=== PATIENT | male | born 1940 | race Caucasian/White ===

== ENCOUNTER 2023-02-04 10:56 | Observation (INO) | payer MEDICARE, SELFPAY ==
[2023-02-04] VITALS (37 sets, daily range): BP systolic 103–139; BP diastolic 53–79; PULSE 58–131; RESP 15–28; TEMP 36.6–37.1; O2SAT 92–99; BMI 29.1
--- NOTE | ~2023-02-04 | XR_ITS ---
EXAMINATION: XR chest 2V DATE: 02/04/2023 11:49 INDICATION: Weakness TECHNIQUE: frontal and lateral views of the chest were obtained. COMPARISON: None FINDINGS: Increased lucency and architectural distortion in the upper lung zones suggestive but not diagnostic of emphysema. Calcified nodule in the left midlung zone consistent with old granulomatous disease. Mi ld linear atelectasis at the lung bases on the lateral projection. No pulmonary edema, pleural effusi on or pneumothorax. Heart size is normal. Tortuous thoracic aorta. Moderate degenerative skeletal beth nges in the spine and at both shoulders. IMPRESSION: 1. Mild streaky bibasilar atelectasis with hyperlucency at the upper lung zone suggestive but not sonia gnostic of COPD. Reviewed, dictated and finalized at location A. IMPRESSION: 1. Mild streaky bibasilar atelectasis with hyperlucency at the upper lung zone suggestive but not diagnostic of COPD.
--- NOTE | ~2023-02-04 | US_ITS ---
EXAMINATION: US abdomen limited DATE: 02/04/2023 19:59 INDICATION: elevated LFTs, thrombocytopenia TECHNIQUE: Multiple grayscale and Doppler ultrasound images of limited portions of the abdomen were o btained. COMPARISON: None available. FINDINGS: Not visualized The liver is normal with normal echogenicity and echotexture. No surface nod ularity. Normal hepatopetal flow in the main portal vein. The gallbladder is normal with no abnormal wall thickening, pericholecystic fluid or stones. The common bile duct measures 5 mm. There was no so nographic Oates sign. Visualized portions of the inferior vena cava were normal. Right kidney measur es 11.1 cm, no hydronephrosis. IMPRESSION: Pancreas obscured by bowel gas, otherwise normal limited abdominal ultrasound findings. Reviewed, dictated and finalized at location K. IMPRESSION: Pancreas obscured by bowel gas, otherwise normal limited abdominal ultrasound f indings.
--- NOTE | ~2023-02-04 | MR_ITS ---
EXAMINATION: MR brain/brain stem wo con DATE: 02/05/2023 15:34 INDICATION: Gait instability TECHNIQUE: Magnetic resonance imaging (MRI) of the brain and brainstem was performed without intraven ous contrast. Sequences included sagittal and axial T1-weighted SE, axial diffusion-weighted FS SE, a xial T2*-weighted GRE, axial T2-weighted FLAIR, and axial T2-weighted FSE. Postcontrast axial and cor onal T1-weighted SE was obtained. Apparent diffusion coefficient (ADC) maps were created. COMPARISON: CT dated 12/05/2022 FINDINGS: There are no areas of restricted diffusion to suggest acute infarction. No intracranial hemorrhage or abnormal intracranial mass lesion. There are scattered areas of nonspecific increased T2-weighted si gnal intensity in the cerebral white matter, predominantly involving the deep and periventricular whi te matter. There are no intraparenchymal signal abnormalities seen on the other pulse sequences. The ventricles are symmetric and normal in size. There are no abnormal extra-axial fluid collections. Jovani w voids are seen in the cerebral arteries on the T2-weighted sequences consistent with their expected patency. Mild mucosal thickening the left maxillary sinus. Visualized orbits and soft tissues are un remarkable. IMPRESSION: 1. No acute intracranial process. 2. Scattered periventricular predominant white matter T2 hyperintensity which is within normal limits for age and likely sequela of chronic small vessel ischemic disease. Reviewed, dictated and finalized at location A. IMPRESSION: 1. No acute intracranial process. 2. Scattered periventricular predominant white matter T2 hyperintensity which i s within normal limits for age and likely sequela of chronic small vessel ische real disease.
--- NOTE | ~2023-02-04 | CT_ITS ---
EXAMINATION: CT brain wo con INDICATION: Dizziness and falls COMPARISON: None TECHNIQUE: Standard unenhanced head CT. The dose-length product (DLP) was 605.33 mGy-cm. The mA was a djusted according to patient size. Iterative reconstruction technique was employed. FINDINGS: There is no acute intraparenchymal hemorrhage. No evidence of mass lesion. No evidence of a cute infarction. There is mild periventricular and subcortical hypodensity probably related to small vessel ischemic disease. There is mild prominence of the sulci and ventricles related to cerebral atr ophy. Intracranial calcified cerebral atherosclerosis is noted. There are no extra-axial collections. There is no mass effect or midline shift. The orbits and soft tissues are unremarkable. The visualiz ed sinuses and mastoid air cells are well aerated. IMPRESSION: 1. No acute intracranial abnormality. 2. Age related findings. Reviewed, dictated and finalized at location L.
--- NOTE | ~2023-02-04 | MR_ITS ---
EXAMINATION: MR lumbar spine wo con DATE: 02/05/2023 15:34 INDICATION: Gait instability TECHNIQUE: Magnetic resonance imaging (MRI) of the lumbar spine was performed without intravenous con trast. Sequences included sagittal T2-weighted FSE, sagittal T2-weighted FS FSE, sagittal T1-weighted FSE, and axial T2-weighted FSE. 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 2 -3 mm retrolisthesis L1 on L2, L2 on L3, L3 on L4 and L4 on L5. Mild likely physiologic anterior wedg ing at T12 and L1 with <20% anterior vertebral body height loss. There is also mild right anterior ve rtebral body height loss at L4. Normal bone marrow signal. Moderate disc height loss at L2-L3 and mil d disc height loss at remaining levels from T11-T12 through L5-S1. The conus medullaris terminates at L1-L2. There is normal signal in the caudal spinal cord. Paravertebral soft tissues are unremarkable . The following disc levels are specifically discussed: T12-L1: Disc is bulging. There is mild bilateral facet joint osteoarthritis. There is mild bilateral neural foraminal stenosis. There is mild central canal stenosis. L1-L2: Disc is bulging with annular fissure. There is mild bilateral facet joint osteoarthritis. Ther e is mild to moderate bilateral neural foraminal stenosis. There is mild central canal stenosis. L2-L3: Disc is bulging with annular fissure and superimposed small right paracentral disc extrusion w ith disc material extending up to 5 mm caudal to the level of the superior endplate of L3. There is m ild bilateral facet joint osteoarthritis. There is moderate bilateral neural foraminal stenosis. Ther e is mild central canal stenosis. L3-L4: Disc is bulging with annular fissure. There is mild bilateral facet joint osteoarthritis. Ther e is moderate bilateral neural foraminal stenosis. There is mild central canal stenosis. L4-L5: Disc is bulging with annular fissure. There is mild to moderate bilateral facet joint osteoart hritis. There is moderate bilateral neural foraminal stenosis. There is mild central canal stenosis. L5-S1: Annular fissure and broad-based disc extrusion with disc material extending up to 5 mm cephala d to the level of the inferior endplate of L5. There is mild to moderate bilateral facet joint osteoa rthritis. There is severe bilateral neural foraminal stenosis. There is moderate central canal stenos is. IMPRESSION: 1. 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 Reviewed, dictated and finalized at location A. IMPRESSION: 1. Mild to moderate lumbar spondylosis most notable for L5 spondylolysis with 1 0 mm anterolisthesis on S1 which contributes to severe bilateral neural foramin al stenosis and moderate central canal stenosis at L5-S1.
--- NOTE | ~2023-02-04 | US_ITS ---
EXAMINATION: US carotid duplex BI DATE: 02/04/2023 19:53 INDICATION: Dysmetria. Loss of balance. TECHNIQUE: Grayscale, color Doppler, and pulsed Doppler images of the cervical carotid arteries were obtained. The degree of vessel stenosis is placed in one of the following categories: normal, <50%, 5 0-69%, >=70% but less than near-occlusion, near-occlusion, or total occlusion. Note that percent sten osis relative to normal distal artery lumen diameter is indirectly measured from velocity measurement s as described by Jovanni, et al. Radiology 2003; 229:340-346. COMPARISON: None. FINDINGS: RIGHT: The right common carotid artery (CCA) peak systolic velocity (PSV) is 99 cm/s. The right internal car otid artery (ICA) PSV is 76 cm/s. The right ICA end-diastolic velocity (EDV) is 33 cm/s. The right IC A/CCA PSV ratio is 0.8. Grayscale and color Doppler images yield an estimate of <50% diameter reducti on from plaque in the ICA. There is antegrade flow in the right vertebral artery. LEFT: The left CCA PSV is 87 cm/s. The left ICA PSV is 71 cm/s. The left ICA EDV is 26 cm/s. The left ICA/C CA PSV ratio is 0.8. Grayscale and color Doppler images yield an estimate of <50% diameter reduction from plaque in the ICA. There is antegrade flow in the left vertebral artery. IMPRESSION: 1. <50% stenosis in the right internal carotid artery. 2. <50% stenosis in the left internal carotid artery. Reviewed, dictated and finalized at location A.
--- NOTE | 2023-02-04 11:07 | ECG_ITS ---
Measurements Intervals [place] Rate: 80 P: 66 OH: 171 QRS: 44 QRSD: 95 T: 70 QT: 352 QTc: 407 Interpretive Statements SINUS RHYTHM WITH OCCASIONAL SUPRAVENTRICULAR PREMATURE COMPLEXES NONSPECIFIC ST & T-WAVE ABNORMALITY ABNORMAL ECG NO PREVIOUS ECG AVAILABLE FOR COMPARISON Electronically Signed On 02-04-2023 13:31:21 CDT by Travis Paris M.D.
[2023-02-04 11:31] LABS: Hematocrit 43.4 % (42.0-52.0); Hemoglobin 14.5 g/dL (14.0-18.0); Immature Platelet Fraction Pct 7.8 % (0.9-11.2); Mean Corpuscular HGB Conc 33.4 g/dl (32-36); Mean Corpuscular Volume 98.6 fl (80-100); Mean Platelet Volume 10.7 fl (7.4-10.4); Platelet Count Result 95 k/mm3 (150-375); Red Cell Distribution Width 12.8 % (11.5-14.5)
[2023-02-04 11:42] LABS: Alanine Aminotransferase 38 U/L (6-50); Albumin Level 4.1 g/dL (3.5-5.1); Alkaline Phosphatase 129 U/L (38-126); Anion Gap 11 mmol/L (8-16); Aspartate Amino Transferase 133 U/L (17-59); Bilirubin,Total 1.5 mg/dL (0.2-1.3); Blood Urea Nitrogen 20 mg/dL (9-20); Calcium 8.5 mg/dL (8.4-10.2); Carbon Dioxide 21 mmol/L (22-30); Chloride 96 mmol/L (98-107); Estimated CRCL calculation 42 ml/min; Estimated Glomerular Filt Rate 53; Glucose 99 mg/dL (65-110); Potassium 4.3 mmol/L (3.4-5.0); Sodium 128 mmol/L (137-145)
[2023-02-04 12:05] LABS: Band Neutrophils Percent 25 % (0-6); Lymphocytes Absolute Manual 0.55 K/mm3 (1.1-4.5); Metamyelocytes Percent 3 %; Monocytes Percent Manual 6 % (3-9); Neutrophils Percent Manual 55 % (46-73); Schistocytes None Seen (NORMAL); Total Cells Counted 100
--- NOTE | 2023-02-04 12:35 | ED.GENADULT ---
HPI - General Adult General Chief complaint: Weakness Stated complaint: WEAKNESS AND URINARY INCONTINENCE Time Seen by Provider: 02/04/23 11:57 History of Present Illness HPI narrative: 83-year-old male presented the ED for evaluation of increased generalized weakness, exertional shortness of breath, urinary incontinence and unstable gait that has been worsening over the course of the last week. Patient states he Does have shortness of breath but that this has acutely worsened over the course of the last week. Patient states he gets out of breath does while walking across the room. Patient states he also does have a history of unsteady gait that would worsen when he looked up but now he states that his unstable gait is worsened even with minor ambulation. Patient states with his unstable gait and dizziness he does not feel like he is going to pass out but has had increased falls. Patient denies any prior history of urinary retention or urinary tract infections. Patient denies any chest pain. Patient denies any associated nausea vomiting or diarrhea. Related Data Home Medications Medication Instructions Recorded Confirmed glucosamine 375 mg-chondroitin sul 1 cap PO DAILY 02/04/23 02/04/23 A 200 mg-herb no.182 100 mg capsule Allergies Allergy/AdvReac Type Severity Reaction Status Date / Time No Known Allergies Allergy Verified 02/04/23 12:57 Review of Systems Review of Systems: All systems reviewed & are unremarkable except as noted in HPI and below PMFSH Past Medical History Medical History (Updated 02/04/23 @ 21:05 by Marcos Montanez MD) Arthritis Surgical History Surgical History (Updated 02/04/23 @ 16:22 by Mahi Musa PA-C) History of bilateral total hip arthroplasty History of open reduction and internal fixation (ORIF) procedure Repair right hand fracture. Family History Family History Mother Diabetes mellitus Social History Social History (Updated 02/04/23 @ 16:23 by Mahi Musa PA-C) Social History: Surrogate medical decision maker: Gómez Corea (cousin) or Wilbur Shabazz (grandson). Code status: Full code. Smoking status: Former smoker Smokeless tobacco user: chewing tobacco Alcohol intake: current Drinks per week: 1 Alcohol use details: Rare alcohol use, perhaps 1 to 2 drinks a month. Substance use: never Other substance usage details: chewing tobacco Lack of Transportation: No Lack of Food: Never True Current Housing: I Have Housing Concerned About Future Housing: No Difficulty Paying Gas/Electric Bills: No Difficulty Paying for Meds: No Currently Unemployed: No Education: Trade/Vocational Certificate Difficulty w/ Childcare or Family Care: No Additional living arrangements comments: The patient [place] [address] [place] 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 Spiritual care concerns: No Exam Narrative: APPEARANCE: Well appearing, no pain, no distress, well-nourished. HEAD: normocephalic, atraumatic. EYES: PERRLA/EOMI, conjunctivae clear. NOSE: Normal no drainage EARS:TMS clear with good light reflex. THROAT: Pharynx clear, no exudate. NECK: Supple. No adenopathy, no masses. RESPIRATORY: Airway patent, respirations nonlabored. Clear to auscultation bilaterally, no rales, rhonchi, wheezing. CARDIOVASCULAR: Regular rate and rhythm without murmurs rubs or gallops. ABDOMINAL: Soft, nontender, nondistended, normal bowel sounds MUSCULOSKELETAL: Moves all extremities. Strength/ROM intact, No edema, No calf tenderness. NEURO: Alert. Cranial nerves II through XII intact. Coordination of the left leg that patient states is not new. SKIN: Warm, dry. Normal Color PSYCHIATRIC: Normal affect/mood. Course Course Emergency Course: 83-year-old male presented ED for evaluation of shortness of breath, unsteady gait and urinary incontinence. Head CT was negative. Jloly
[2023-02-04 12:51] LABS: Appearance Urine Clear (Clear); Bacteria Urine None Seen /hpf; Bilirubin Urine 1+ (Negative); Blood Urine Negative (Negative); Color Urine Dark Yellow (Yellow); Glucose Urine UA Negative (Negative); Ketones Urine Trace mg/dL (Negative); Leukocyte Esterase Ur Negative LEU/UL (Negative); Need Manual Microscopic Reviewed; Nitrate Urine Negative (Negative); Protein Urine 1+ mg/dL (Negative); RBC Urine 0-2 /hpf (0-2); Specific Grav Ur 1.019 (1.001-1.035); Squamous Epithelial Cell Urine Occasional /hpf (Few); WBC Urine 0-5 /hpf; pH Urine 5.5 (5.0-9.0)
[2023-02-04 12:58] LABS: Add Urine Microscopic? YES
[2023-02-04 13:40] LABS: Influenza A QL RT-PCR Negative (Negative); Influenza B QL RT-PCR Negative (Negative); RSV RNA, RT-PCR Negative (Negative); SARS-CoV-2 RNA PCR Negative (Negative)
[2023-02-04 13:49] LABS: NT Pro B Type Natriuretic Pept 241 pg/mL (19.9-100)
--- NOTE | 2023-02-04 15:55 | PM.IMHP ---
H&P: HPI History of Present Illness Date/Time: 02/04/23 15:45 Chief Complaint: Weakness, balance issues, urine incontinence. Narrative: This is a very pleasant 83-year-old gentleman with no reported medical history presented to the emergency department via private vehicle from home accompanied by his cousin and grandson for evaluation of weakness, balance issues, and urine incontinence. The patient provides the following history. He is quite healthy and is very active; always working on something at the house and fixing lawnmowers, etc.. The last year he started to have issues with his balance and he now ambulates with a cane or wheeled walker on occasion. He has had falls over the year with his last fall being on Wednesday. He cannot say for sure what caused the fall, perhaps he tripped over a rug, but he sustained no injuries with that and there was no head trauma or loss of consciousness. His appetite has been poor and he has not been eating much though he continues to try to stay hydrated (he typically drinks up to a gallon of water a day and he has done so for many years). Additionally he reports problems with urinary incontinence which is also not necessarily new. He has intermittent low back pain which is not necessarily unusual. He came in today due to the inability to accomplish his usual activities of daily living due to weakness. He denies vertigo, syncope, near syncope, focal weakness, paresthesias, headache, vision changes, facial droop, difficulty speaking and swallowing, trauma, memory loss, chest pain, nausea, vomiting, diarrhea, and dysuria. He was afebrile on arrival to the emergency department with stable blood pressures. CBC was significant for white blood cell count of 5.0, hemoglobin 14.5, platelet 95, and 25% bands were noted on manual differential (no schistocytes seen). CMP was significant for sodium of 128, chloride 96, carbon dioxide 21, BUN 20, creatinine 1.30, total bili 1.5, AST 133, ALT 38, alkaline phosphatase 129. Urine showed 1+ protein, trace ketones, and 1+ bilirubin. He tested negative for influenza, RSV, and SARS-CoV-[address] showed no acute intracranial abnormality and age-related findings. Chest x-ray did not show any acute findings. EKG showed sinus rhythm with occasional ectopy, rate of 80, normal axis, and nonspecific ST T wave changes. Review of Systems Review of Systems: Twelve systems were reviewed. Weight has remained stable. No recent cold or flu symptoms. Denies sensations of racing heart. He has mild shortness of breath with exertion but denies cough. No pleuritic pain. No orthopnea or paroxysmal nocturnal dyspnea. No lower extremity edema, calf pain, or history of venous thromboembolism. Denies dysphagia. No history of liver disease. Denies jaundice and pruritus. Denies hematuria and dysuria. No sensations of incomplete bladder evacuation. No fecal incontinence. No saddle anesthesias. Rare tingling sensations in the lower legs but that is rare. Occasional Charley horses in the legs. Except as documented, all other systems were reviewed and are negative. [facility] Past Medical History Medical History (Updated 02/04/23 @ 21:05 by Marcos Montanez MD) Arthritis Surgical History Surgical History (Updated 02/04/23 @ 16:22 by Mahi Musa PA-C) History of bilateral total hip arthroplasty History of open reduction and internal fixation (ORIF) procedure Repair right hand fracture. Family History Family History Mother Diabetes mellitus Social History Social History (Updated 02/04/23 @ 16:23 by Mahi Musa PA-C) Social History: Surrogate medical decision maker: Gómez Corea (cousin) or Wilbur Shabazz (grandson). Code status: Full code. Smoking status: Former smoker Smokeless tobacco user: chewing tobacco Alcohol intake: current Drinks per week: 1 Alcohol use details: Rare alcohol use, perhaps 1 to 2 drinks a month.
--- NOTE | 2023-02-04 16:17 | ADMGEN ---
This patient, Joni Shabazz, was admitted to Medical Room 243-01. Patient/family oriented to hospital policies and general routines including ID bracelet, bed and alarms, visiting hours, pain management, procedures, bathroom and other care routines, personal items, smoking policy, room service/diet, and visiting hours. Information on how to activate the Rapid Response Team has been discussed. Patient/Family are encouraged to report perceived risks to care and to ask questions if they do not understand what they are told or what they should do.
[2023-02-04 18:06] LABS: CRP 4.8 mg/dL (<1.0)
[2023-02-04 18:25] LABS: Erythrocyte Sedimentation Rate 10 mm/hr (0-20)
[2023-02-04 19:33] LABS: Folic Acid 13.6 ng/mL (2.76->20)
[2023-02-04 21:09] LABS: Glucose Point of Care 97 mg/dl (65-105)
[2023-02-04 21:50] LABS: Hepatitis B Surface Antigen Negative (Negative)
[2023-02-04 21:55] LABS: HAV RESULT Negative (Negative); Hepatitis B Core IgM Result Negative (Negative)
[2023-02-04 22:07] LABS: Hepatitis C Virus Antibody Negative (Negative)
[2023-02-04] MEDS: SODIUM CHLORIDE 0.9% IV 1,000 ML 100 ML IV CONT (23:12)
[2023-02-05] VITALS (10 sets, daily range): BP systolic 105–134; BP diastolic 61–82; PULSE 60–78; RESP 18; TEMP 36.4–36.9; O2SAT 96–100
[2023-02-05 05:06] LABS: Creatine Kinase 249 U/L (55-170); Magnesium 2.2 mg/dL (1.6-2.3)
[2023-02-05 05:10] LABS: Hematocrit 38.4 % (42.0-52.0); Hemoglobin 13.2 g/dL (14.0-18.0); Mean Corpuscular HGB Conc 34.4 g/dl (32-36); Mean Corpuscular Hemoglobin 33.6 pg (26-34); Mean Corpuscular Volume 97.7 fl (80-100); Mean Platelet Volume 11.3 fl (7.4-10.4); Platelet Count Result 76 k/mm3 (150-375); Red Blood Count 3.93 M/mm3 (4.6-6.20); Red Cell Distribution Width 12.5 % (11.5-14.5); White Blood Count 3.9 K/mm3 (4.5-10.0)
[2023-02-05 05:33] LABS: Creatinine Urine 103.1 mg/dL; Sodium Urine Random 34 meq/L
[2023-02-05 05:38] LABS: Band Neutrophils Percent 25 % (0-6); Lymphocytes Absolute Manual 0.54 K/mm3 (1.1-4.5); Monocytes Absolute Manual 0.35 K/mm3 (0.1-0.90); Monocytes Percent Manual 9 % (3-9); Neutrophils Percent Manual 52 % (46-73); Total Cells Counted 100
[2023-02-05 05:39] LABS: Platelet Estimate Decreased (Adequate); Schistocytes None Seen (NORMAL)
[2023-02-05 05:41] LABS: Burr Cells 1+ (NORMAL)
[2023-02-05 07:27] LABS: Alanine Aminotransferase 32 U/L (6-50); Albumin Level 2.9 g/dL (3.5-5.1); Alkaline Phosphatase 98 U/L (38-126); Anion Gap 6 mmol/L (8-16); Aspartate Amino Transferase 100 U/L (17-59); Bilirubin,Total 0.8 mg/dL (0.2-1.3); Blood Urea Nitrogen 20 mg/dL (9-20); Calcium 7.7 mg/dL (8.4-10.2); Carbon Dioxide 18 mmol/L (22-30); Chloride 101 mmol/L (98-107); Estimated CRCL calculation 54 ml/min; Estimated Glomerular Filt Rate > 60; Glucose 89 mg/dL (65-110); Potassium 3.6 mmol/L (3.4-5.0); Sodium 125 mmol/L (137-145)
[2023-02-05] MEDS: PERFLUTREN LIPID MICROSPHERES 1.5 ML VIAL DILUTED TO 10 ML TOTAL VOLUME IV PUSH (09:06)
--- NOTE | 2023-02-05 11:34 | IVDEFINITY ---
Prior to administration of IV Definity the patient was educated on the risks and benefits of the imaging enhancing agent including potential adverse side effects. The patient verbalized understanding. Allergies were verified. No exclusion criteria were identified and at least one of the following inclusion criteria were met: 1) physician request, 2) patient technically difficult to image (per the [place] [employer] guidelines of two or more segments not discernable within the apical view), or 3) questionable left ventricular function. ?
--- NOTE | 2023-02-05 11:34 | WPDNEURCNPN ---
Assessment and Plan Assessment and plan (1) Falls frequently: Code(s): R29.6 - Repeated falls Status: Acute (2) Generalized weakness: Code(s): R53.1 - Weakness Status: Acute (3) Urinary incontinence: Code(s): R32 - Unspecified urinary incontinence Status: Acute (4) Hyponatremia: Code(s): E87.1 - Hypo-osmolality and hyponatremia Status: Acute Plan Mr. Shabazz is an 83 year old fairly healthy man with a history of arthritis and spine disease with acute on chronic worsening of gait instability and urinary incontinence. Gait instability is likely due to a combination of spine disease (although details of the condition are not available), arthritis, and possibly neuropathy (some sensory changes noted on exam). Patient is cognitively intact and CT head did not show any evidence of hydrocephalus. I do not think patient has NPH based on these findings. There is no dysmetria with FNF on exam. Patient has difficulty performing heel to figueroa but this is due to arthritis in his knees rather than true ataxia. As for his urinary incontinence, etiology is unclear. He reports it typically occurs when he goes from sitting to standing, but he does not characterize it as full loss of bladder control. Given acute worsening of gait and urinary symptoms over the past week, without any clear cut cause, would recommend obtain MRI brain and MRI lumbar spine without contrast. He does not have any evidence of myelopathy on exam, and I do not expect to find anything acute. However it would be helpful to have if gait worsens; he will likely need to follow-up with his spine surgeon. - MRI brain w/o contrast - MRI lumbar spine w/o contrast - EMG/NCS as outpatient Consult date: 02/05/23 Reason for consult: Dysmetria, possible NPH HPI: Joni Shabazz is a 83 year old male with a history of arthritis presenting due to gait instability and generalized weakness. At baseline, patient walks with a walker most of the time. He has been using the walker for the past two years because of his arthritis in the knees and he has a history of bad back . Over the past week, patient reports feeling more wobbly than usual when going from sitting to standing. He denies any lightheadedness or vertiginous symptoms. He reports feeling dizzy, but when asked to clarify further he says wobbly . When he is walking with his walker, he does not feel unsteady, it only seems happen when he had to slightly bend forward while sitting to stand up. Over the past week, this unsteadiness worsened. Patient also reports a history of occasional incontinence, that occurs when he goes from sitting to standing. This has been going on for the past 6 months or so, but usually it would only be dribble of urine rather than full loss of bladder control. However, in the past week, the incontinence has gotten worse to the point that he would lose full control of his bladder. He has numbness in his feet, that usually occurs when he sits down to drive, but can also occur while driving. He denies any ascending numbness. He denies any tremor. He reports poor appetite for the past week and hasn't been feeling well. He denies any changes in his cognition and feels that his memory is good for his age. 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 Of note, patient reports a prior history of spine disease, unclear which level. He did see a spine surgeon in the past but has never had any spinal surgery. 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 He has chronic back pain and hip pain (history of prior hip replacements). When he presented to [place] ED, labwork is significant for thrombocytopenia and mild transaminitis. His UA was negative and was negative for tested viral infections including COVID. CT head showed age related changes but no acute findings. Review of
--- NOTE | 2023-02-05 12:13 | PM.IMPN ---
Progress Note: A&P Assessment and Plan (1) Generalized weakness: Code(s): R53.1 - Weakness Status: Acute Assessment and Plan: The patient presented to the emergency department for evaluation of generalized weakness in addition to unsteady gait and urinary incontinence which are not new findings. Etiology is not entirely clear but may be related to moderate hyponatremia. Viral infection is considered though he tested negative for influenza, RSV, and COVID. Chest x-ray and urinalysis were not concerning for infection. He has not been started on any new medication recently. He lives on [address] [place] [address] in his outside quite a bit but he has not had any significant mosquito bites or tick bites that he can recall. He does not have any new focal findings on exam. PT/OT consulted. Neurology recommending brain and lumbar MRI without contrast as well as outpatient EMG/NCS (2) Hyponatremia: Code(s): E87.1 - Hypo-osmolality and hyponatremia Status: Acute Assessment and Plan: It does not sound as though he has been eating very well the last week however he does drink upwards of a gallon water a day but has done so for decades. TSH is within normal limits. Serum osmolalities pending FENA 0.3 prerenal. Sodium worsened to 125 overnight after fluid resuscitation. Will initiate restriction of 1800mL (3) Dysmetria: Code(s): R27.8 - Other lack of coordination Status: Acute Assessment and Plan: He has had issues with his balance for at least the past year and he has had several falls, luckily with no injuries. He is dysmetric with heel to figueroa, worse on the right. No dysmetria with [id number] or rapid alternating movements however. Sensation is intact throughout the lower extremities. Neurology recommending MRI of brain and lumbar spine. Neurology not concerned for NPH right now. (4) Thrombocytopenia: Code(s): D69.6 - Thrombocytopenia, unspecified Status: Acute Assessment and Plan: Platelet count of 76. His liver enzymes are a bit elevated raising the possibility of liver disease. Other cell lineages are unremarkable. He has not received any heparin products recently. No purpura or petechiae noted on exam today. Kidney function is stable. 02/05 labs showing concern for pancytopenia. If this continues will consult Hematology. Continue to monitor (5) Urinary incontinence: Code(s): R32 - Unspecified urinary incontinence Status: Acute Assessment and Plan: An ongoing issue for this patient for at least the past 1 year. His urinalysis is unremarkable and he has not had any dysuria. Bladder scan to ensure he is not retaining urine. He is continent of bowel and has no saddle anesthesia. (6) Elevated LFTs: Code(s): R79.89 - Other specified abnormal findings of blood chemistry Status: Acute Assessment and Plan: Abdominal exam is benign. Total bili 1.5, AST 133, ALT 38 and alk-phos 129 on presentation. Repeat labs all show normalizing LFTs with everything within normal limits besides AST and 100. Patient CK elevated at 249, will monitor Subjective Date/time seen: 02/05/23 12:13 Interval history: Patient states that he is feeling better today. States the last couple days he has started to trend corner. Some of the patient's symptoms he describes such as body aches, chills and feeling overall fatigued he could have a viral infection. He is still hypernatremic which could also explain his progressive weakness. His sodium went down even more overnight. Patient will be fluid restricted to see if this helps his sodium. He denies any new medications recently. He did state that he does not have a primary care provider does not get regular labs done so it is hard to tell what is acute versus chronic and his labs. Exam Narrative: GENERAL: Comfortable, no acute distress HENMT: fadi
--- NOTE | 2023-02-05 16:29 | ECHO_ITS ---
Patient Info Name: Joni Shabazz Age: 83 years : 1940 Gender: Male Ht: 72 in Wt: 214 lbs BSA: 2.24 m2 HR: 64 bpm BP: 124 / 64 mmHg Heart Rhythm: Sinus Rhythm Technical Quality: Fair Exam Date: 02/05/2023 8:27 AM Exam Location: [facility] Patient Status: Outpatient Admit Date: 02/04/2023 Staff Ordering Physician: Mahi Musa PA-C Community Action Worker: Deepali Morse RDCS Attending Provider: Aidan Middleton MD Referring Physician: Dimple HANSEN; Exam Type: CA echo dop color flow w con Study Info Indications - weakness, balance issues Complete two-dimensional, color flow and Doppler transthoracic echocardiogram is performed with contrast to opacify the left ventricle and to improve the deliniation of the left ventricle endocardial borders. Contrast/Agitated Saline Contrast/Ag. Saline: Definity Amount: 2.00 ml Administered By: Deepali Morse RDCS Existing IV Access: Yes IV Access Condition: patent with no signs of infiltration Summary 1. Left ventricular chamber dimension is normal. 2. Definity contrast administered improved wall motion interpretation. 3. Left ventricular systolic function is normal, estimated at 65-70%. 4. The left ventricular diastolic function is normal. 5. E/e' 8 is minimally elevated. 6. There is moderate aortic valve sclerosis. 7. There is mild aortic valve stenosis with a peak velocity of 168.91 cm/s, mean gradient of 7 mmHg, and aortic valve area of 1.67 cm2. 8. The prox ascending aorta size is borderline dilated at 4.1 cm. Left Ventricle E/e' 8 is minimally elevated. Definity contrast administered improved wall motion interpretation. Left ventricular chamber dimension is normal. Left ventricular systolic function is normal, estimated at 65-70%. The left ventricular diastolic function is normal. Right Ventricle Right ventricular systolic function is normal and with normal TAPSE 1.9 cm. Right ventricular chamber dimension is normal. Left Atria Left atrial chamber dimension is normal. Right Atria Right atrial chamber dimension is normal. Aortic Valve The aortic valve is trileaflet. There is moderate aortic valve sclerosis. There is mild aortic valve stenosis with a peak velocity of 168.91 cm/s, mean gradient of 7 mmHg, and aortic valve area of 1.67 cm2. There is no aortic valve regurgitation. Pulmonic Valve There is no pulmonic regurgitation. Mitral Valve There is no mitral valve stenosis. There is no mitral valve regurgitation. Tricuspid Valve There is no tricuspid valve regurgitation. Pericardium/Pleural There is no pericardial effusion. Inferior Vena Cava Normal inferior vena cava with >50% collapse upon inspiration consistent with normal right atrial pressure, 5 mmHg. Aorta The prox ascending aorta size is borderline dilated at 4.1 cm. The aortic root size at the sinus of Valsalva is normal. Left Ventricular Outflow Tract Name Value Normal LVOT 2D LVOT Diameter 1.97 cm LVOT Doppler LVOT Peak Gradient 5 mmHg LVOT Mean Gradient 2 mmHg LVOT VTI 21.29 cm LVOT VTI/AV VTI Ratio
[2023-02-05 16:56] LABS: Sodium 131 mmol/L (137-145)
[2023-02-06 05:35] LABS: Hematocrit 38.4 % (42.0-52.0); Immature Platelet Fraction Pct 9.1 % (0.9-11.2); Mean Corpuscular HGB Conc 33.9 g/dl (32-36); Mean Corpuscular Volume 97.5 fl (80-100); Mean Platelet Volume 11.5 fl (7.4-10.4); Platelet Count Result 87 k/mm3 (150-375); Red Blood Count 3.94 M/mm3 (4.6-6.20); Red Cell Distribution Width 12.5 % (11.5-14.5); White Blood Count 6.1 K/mm3 (4.5-10.0)
[2023-02-06 06:00] VITALS: BP 121/64; PULSE 60; RESP 18; TEMP 36.4; O2SAT 99
[2023-02-06 06:09] LABS: Band Neutrophils Percent 8 % (0-6); Burr Cells 1+ (NORMAL); Lymphocytes Percent Manual 23 % (18-44); Monocytes Absolute Manual 0.36 K/mm3 (0.1-0.90); Monocytes Percent Manual 6 % (3-9); Neutrophils Absolute Manual 4.33 K/mm3 (1.3-6.7); Neutrophils Percent Manual 63 % (46-73); Platelet Estimate Decreased (Adequate); Schistocytes None Seen (NORMAL); Total Cells Counted 100
[2023-02-06 06:14] LABS: Alanine Aminotransferase 31 U/L (6-50); Alkaline Phosphatase 116 U/L (38-126); Anion Gap 3 mmol/L (8-16); Aspartate Amino Transferase 84 U/L (17-59); Bilirubin,Total 0.6 mg/dL (0.2-1.3); Blood Urea Nitrogen 18 mg/dL (9-20); Calcium 7.9 mg/dL (8.4-10.2); Carbon Dioxide 25 mmol/L (22-30); Chloride 103 mmol/L (98-107); Creatine Kinase 126 U/L (55-170); Estimated CRCL calculation 60 ml/min; Estimated Glomerular Filt Rate > 60; Glucose 104 mg/dL (65-110); Potassium 3.9 mmol/L (3.4-5.0); Sodium 131 mmol/L (137-145)
--- NOTE | 2023-02-06 10:41 | PM.DS ---
DS: Admitting Diagnosis Discharge Date 02/06/23 Admitting Diagnosis Weakness DS: Summary Hospital Course Hospital Course: This is an 83-year-old male with no significant past medical history due to not having a primary care provider and not being seen by a general doctor in over 20 years. He is very active and seems to take good care of himself. He has had several falls over the last year and uses a cane or a wheeled walker for ambulation. Chief complaint in the ED is weakness and balance problems. Patient is not able to say why he falls but just that he does. He also stated that he drinks close to a gal of water a day and has done so for many many years. About 1 week ago patient stated that he started feeling under the weather with associated body aches and chills and just had some progressive fatigue. When I saw him he stated that he was starting to feel slightly better now. Due to patient's presenting symptoms neurology was consulted. He did not have any vertigo, syncope, focal weakness, paresthesias, headache, vision changes, facial droop, difficulty speaking and swallowing, trauma, memory loss or dysuria. He was found to have low platelet count, sodium of 128 and elevated BUN and creatinine as well as elevated LFTs. Patient was started on IV fluids. With IV fluids patient's LFTs and kidney function improved although his sodium did drop. After discontinued IV fluids sodium corrected itself to 131. Chest x-ray did not have any acute findings an EKG showed sinus rhythm. Echocardiogram significant for mild aortic stenosis but otherwise unremarkable. Neurology recommended brain MRI and lumbar spine MRI. Brain MRI showed normal aging brain. 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 Discussed with the results with the patient and stat discussed a Neurosurgery consultation but patient did not want to see them in the hospital and he was very adamant about seeing them as an outpatient. Discussed with him the risk and benefits of this and he understood. He did not state that he was having any leg numbness or tingling. He does have chronic back pain and states that 10 years ago he was told that he had a ?disc problem in his low back?. I feel comfortable that patient will follow-up as an outpatient after having long discussion with him. Also discussed with attending physician regarding patient following up as an outpatient as well and he agreed with outpatient follow-up. Patient's labs and vital signs are stable and he is medically cleared for discharge at this time. Time Spent with Patient Time attestation: Total time spent providing and/or coordinating discharge services: DS: Data Data Completed and Pending Labs on day of discharge: Labs from last 24 hours 02/06/23 02/05/23 05:14 16:44 WBC 6.1 RBC 3.94 L Hgb 13.0 L Hct 38.4 L MCV 97.5 MCH 33.0 MCHC 33.9 RDW 12.5 Plt Count 87 L MPV 11.5 H Immature Gran % (Auto) Not Reportable Neut % (Auto) Not Reportable Lymph % (Auto) Not Reportable [place] % (Auto) Not Reportable Eos % (Auto) Not Reportable Baso % (Auto) Not Reportable Lymph # (Auto) Not Reportable [place] # (Auto) Not Reportable Eos # (Auto) Not Reportable Baso # (Auto) Not Reportable Abs Immat Gran (auto) Not Reportable Absolute Neuts (auto) Not Reportable Absolute Nucleated RBC Not Reportable Total Counted 100 Neutrophils % (Manual) 63 Band Neutrophils % 8 H Lymphocytes % (Manual) 23 Monocytes % (Manual) 6 Nucleated RBC % Not Reportable Abs Neuts (Manual) 4.33 Abs Lymphs (Manual) 1.40 Abs Monocytes (Manual) 0.36 Platelet Estimate Decreased % Immature Plt Fraction 9.1 [place] Cells 1+ Schistocytes None seen Sodium 131 L 131 L Potassium 3.9 Chloride 103 Carbon Dioxide 25 Anion Gap 3 L BU
[2023-02-09 08:52] LABS: Osmolality, Urine 515
== END 2023-02-06 11:20 | disposition home or self-care (01) ==
LOC: ANHED 13:03 → ANH2MED 15:45
PROVIDERS: General Practice; Internal Medicine Critical Care Medicine; Physician Assistant; Admitting Provider Hospitalist; Emergency Provider Emergency Medicine; Visit Provider Hospitalist
DX: R53.1 Weakness (principal); E87.1 Hypo-osmolality and hyponatremia; R27.8 Other lack of coordination; R32 Unspecified urinary incontinence; D69.6 Thrombocytopenia, unspecified; R26.89 Other abnormalities of gait and mobility; R06.00 Dyspnea, unspecified; R29.6 Repeated falls; Z20.822 Contact with and (suspected) exposure to COVID-19; B95.61 Methicillin susceptible Staphylococcus aureus infection as the cause of diseases classified elsewhere; E80.7 Disorder of bilirubin metabolism, unspecified; M19.90 Unspecified osteoarthritis, unspecified site; R79.89 Other specified abnormal findings of blood chemistry; R63.0 Anorexia; I35.8 Other nonrheumatic aortic valve disorders; M47.816 Spondylosis without myelopathy or radiculopathy, lumbar region; M48.07 Spinal stenosis, lumbosacral region; R94.31 Abnormal electrocardiogram [ECG] [EKG]; Z68.29 Body mass index [BMI] 29.0-29.9, adult; J44.9 Chronic obstructive pulmonary disease, unspecified; R74.01 Elevation of levels of liver transaminase levels; J98.11 Atelectasis; F10.90 Alcohol use, unspecified, uncomplicated; Z87.891 Personal history of nicotine dependence; Z79.899 Other long term (current) drug therapy
CPT/HCPCS: 36415; 70450; 70551; 71046; 72148; 76705; 80053; 80074; 81001; 82550; 82570; 82607; 82746; 82948; 83735; 83880; 83930; 83935; 84295; 84300; 84443; 85025; 85055; 85652; 86140; 87040; 87077; 87637; 93005; 93880; 96374; 97161; 97165; 99285; C8929; G0378; J7030; Q9957